=== PATIENT | female | born 1940 | race Caucasian/White ===

== ENCOUNTER 2019-11-14 07:00 | Outpatient (RCR) | payer SELFPAY | END 2020-07-25 14:25 | disposition home or self-care (01) | LOC: ANHCPRIII 07:00 | PROVIDERS: Visit Provider Specialist | DX: I50.9 Heart failure, unspecified (principal) | CPT/HCPCS: 99199 ==

== ENCOUNTER 2021-09-22 09:45 | Outpatient (RCR) | payer SELFPAY ==
--- NOTE | 2021-07-07 09:12 | PCCPR ---
Absent Leticia called this am states she has a headache and nose feels stuffy. She will not be in today.
--- NOTE | 2021-07-28 09:21 | PCCPR ---
Absent due to symptoms Leticia called state she is feeling lightheaded , increased SOB and feels unsteady on her feet. Encouraged to call her [employer] Super[employer] and has an apt tomorrow. States her Urologist placed her on cardura and started taking it last week.
== END 2021-09-24 18:47 | disposition home or self-care (01) ==
LOC: ANHCPREHAB 09:45
PROVIDERS: PCP Family Medicine; Visit Provider Internal Medicine Cardiovascular Disease
DX: I50.9 Heart failure, unspecified (principal)
CPT/HCPCS: 99199